=== PATIENT | female | born 1970 | race Native Hawaiian/Other Pacific Islander ===

== ENCOUNTER 2018-06-14 14:08 | Outpatient (CLI) | payer BC | END 2018-06-14 23:09 | disposition home or self-care (01) | LOC: MAMMO 14:08 | DX: Z12.31 Encounter for screening mammogram for malignant neoplasm of breast (principal) ==

== ENCOUNTER 2019-06-23 12:57 | Outpatient (CLI) | payer BC | END 2019-06-23 19:13 | disposition home or self-care (01) | LOC: MAMMO 12:57 | DX: Z12.31 Encounter for screening mammogram for malignant neoplasm of breast (principal) ==

== ENCOUNTER 2020-06-28 13:16 | Outpatient (CLI) | payer BC | END 2020-06-28 21:34 | disposition home or self-care (01) | LOC: MAMMO 13:16 | PROVIDERS: ATTEND Obstetrics & Gynecology | DX: Z12.31 Encounter for screening mammogram for malignant neoplasm of breast (principal) ==

== ENCOUNTER 2022-07-22 12:57 | Outpatient (CLI) | payer BC | END 2022-07-22 19:27 | disposition home or self-care (01) | LOC: MAMMO 12:57 | PROVIDERS: ATTEND Obstetrics & Gynecology | DX: Z12.31 Encounter for screening mammogram for malignant neoplasm of breast (principal) ==